=== PATIENT | female | born 1950 | race Caucasian/White ===

== ENCOUNTER → 2017-10-05 | Outpatient (CLI) | payer OTHER | LOC: BMCIMAGING 07:44 | PROVIDERS: ATTEND Internal Medicine | DX: Z13.6 Encounter for screening for cardiovascular disorders (principal) ==

== ENCOUNTER → 2017-10-17 | Outpatient (CLI) | payer OTHER | LOC: BMCIMAGING 13:22 | PROVIDERS: ATTEND Internal Medicine | DX: Z13.820 Encounter for screening for osteoporosis (principal); M85.89 Other specified disorders of bone density and structure, multiple sites ==

== ENCOUNTER → 2017-12-19 | Outpatient (CLI) | payer OTHER | LOC: BHFA 11:00 | PROVIDERS: ATTEND Internal Medicine | DX: R42 Dizziness and giddiness (principal) ==

== ENCOUNTER → 2018-09-25 | Outpatient (CLI) | payer OTHER | LOC: FIMAGING 13:29 | PROVIDERS: ATTEND Internal Medicine | DX: Z12.31 Encounter for screening mammogram for malignant neoplasm of breast (principal) ==

== ENCOUNTER 2018-10-04 07:27 | Day surgery (SDC) | payer OTHER ==
[2018-10-04] MEDS ORDERED: COSYNTROPIN 0.25 MG/2 ML SYRINGE IVP ONE (07:38)
[2018-10-04] MEDS ORDERED: NS 1,000 ML IV ONE (07:38)
== END 2018-10-04 08:35 | disposition home or self-care (01) ==
LOC: FCATH 07:27
PROVIDERS: ATTEND Internal Medicine Cardiovascular Disease
DX: Z53.8 Procedure and treatment not carried out for other reasons (principal); R42 Dizziness and giddiness; I95.9 Hypotension, unspecified

== ENCOUNTER → 2018-10-25 | Outpatient (CLI) | payer OTHER | LOC: BHFA 09:15 | PROVIDERS: ATTEND Internal Medicine Interventional Cardiology | DX: I95.9 Hypotension, unspecified (principal); R42 Dizziness and giddiness ==

== ENCOUNTER → 2018-11-27 | Day surgery (SDC) | payer OTHER ==
[~2018-11-27] MED LIST: COSYNTROPIN 0.25 MG/2 ML SYRINGE IVP ONE; NS 1,000 ML IV ONE
--- NOTE | 2018-11-29 14:57 | SOAPPROG ---
SOAP Progress Note Assessment/Plan: Assessment: Patient came to [facility] for IV Cotrosym stim test to evaluate for possible [place] disease contributing to her hypotension. She had IV placed, one dose of IV Cortrosyn injected and serial serum cortisol levels drawn. She tolerate the test well and had IV removed and discharge to home. 11/29/18 14:55 ICD10 Worksheet Patient Problems: Problems Problem Status Onset Hypotension Acute - ICD10 Problem Qualifiers (1) Hypotension Qualifiers: Hypotension type: idiopathic hypotension Qualified Code(s): I95.0 - Idiopathic hypotension
== END | disposition home or self-care (01) ==
LOC: FCATH 12:07
PROVIDERS: ATTEND Internal Medicine Cardiovascular Disease
DX: I95.0 Idiopathic hypotension (principal)
CPT/HCPCS: J0834